=== PATIENT | female | born 1960 | race Caucasian/White ===

== ENCOUNTER → 2016-08-04 | Day surgery (SDC) | payer BC ==
--- NOTE | 2016-07-16 15:57 | TH ---
cc: TYE WINN M.D. DATE: PROCEDURE TO BE PERFORMED: Debridement of radiated atrophic skin right breast with tissue rearrangement and reconstruction, possible ADN, removal and replacement of implant with an MX 295 Natrelle style 410 with possible Tez flap based on the back. PAST MEDICAL HISTORY: The past medical history is otherwise unremarkable. She does have a history of hypothyroidism for which she takes Synthroid also anastrozole and alendronate. PAST SURGICAL HISTORY: No other surgeries other than the surgical mastectomies starting back in December of 2004 with tissue expanders and those were removed. We have some issue with the right breast that eventually required a latissimus dorsi on 06/20/15 and then a revision on 12/17/15. On 06/03/15, she also had some revision because of the latissimus dorsi but we are finding that the [place] skin of the right radiated breast is becoming very thin and has an intermittent exposure of the implant. PHYSICAL EXAMINATION: GENERAL APPEARANCE: The patient is a well-developed female in no acute distress. Body habitus is within normal limits. There appear to be no deformities. Appears to have attention to grooming. HEAD, EYES, EARS, NOSE AND THROAT: Eyes Conjunctivae and lids are within normal anatomical limits. The pupils are reactive to light and accommodation, size, and symmetry. There is no evidence of exudate, hemorrhage, or vessel change. Ears, mouth, nose, and throat The external inspection of the ears and nose fails to demonstrate any pathology, scars, lesions, or masses. Nasal mucosa, septum, and turbinates appear to be well hydrated as well as the lips and gums. No evidence of masses in the hypopharynx or submental area. RESPIRATORY: The patient shows no evidence of intercostal refractions. Otherwise, lungs are clear to auscultation without any abnormal sounds or rubs. CARDIOVASCULAR: The patient has a normal heart rate and rhythm. There is no evidence of noticed carotid bruits. Femoral pulses and pedal pulses in extremities are also within normal limits. GASTROINTESTINAL/ABDOMEN: Soft with no evidence of masses or tenderness. Unable to palpate the liver or spleen. No evidence of hernia. MUSCULOSKELETAL: Appears to be reasonable range of motion on the head, neck, spine, ribs, pelvis, right upper extremity, left upper extremity, right lower extremity, and left lower extremity. The muscle strength and tone appears to be equal and within accepted limits. SKIN: There is no rashes, lesions, or ulcers on the trunk, back, and extremities. NEUROLOGICAL: Examination is grossly normal. PSYCHIATRIC: The patient appears to have good orientation of time, place, and person. Does not appear to have any mood effects of depression, anxiety, or agitation. BREASTS: Both breasts are well-healed. There is no evidence of oncologic pathology other than very atrophic skin of the right breast with a latissimus dorsi flap. PLAN: The plan is to proceed accordingly as previously described. MD KARIN Raines/NICKI /1:56 PM /3:49 PM
--- NOTE | 2016-07-31 10:50 | TH ---
cc: TYE WINN M.D. DATE 07/31/2016 DATE OF 1960 THE PROCEDURE TO BE PERFORMED Revision reconstruction right breast including removal and replacement of implant for a [id number], possible Tez flap, possible placement of ADM. HISTORY OF PRESENT ILLNESS This is a 53-year female who underwent back in December of 2014 breast reconstruction with breast tissue expanders. Those were removed. 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 Unfortunately, radiation has continued to thin the skin despite the latissimus dorsi the reason for which we are doing this revision. PAST MEDICAL HISTORY Her past medical history is otherwise significant for an overactive thyroid which has been apparently under control. MEDICATIONS Medications include: 1. Anastrozole 2. Synthroid 3. Alendronate HABITS Benign REVIEW OF SYSTEMS Otherwise unremarkable. ALLERGIES None PHYSICAL EXAM CONSTITUTIONAL: General appearance. The patient is a well-developed female in no acute distress. Body habitus is within normal limits. There appear to be no deformities. Appears to have attention to grooming. HEENT: Eyes Conjunctivae and lids are within normal anatomical limits. The pupils are reactive to light and accommodation, size, and symmetry. There is no evidence of exudate, hemorrhage, or vessel change. Ears, mouth, nose, and throat The external inspection of the ears and nose fails to demonstrate any pathology, scars, lesions, or masses. Nasal mucosa, septum, and turbinates appear to be well hydrated as well as the lips and gums. No evidence of masses in the hypopharynx or submental area. RESPIRATORY: The patient shows no evidence of intercostal refractions. Otherwise, lungs are clear to auscultation without any abnormal sounds or rubs. CARDIOVASCULAR: The patient has a normal heart rate and rhythm. There is no evidence of noticed carotid bruits. Femoral pulses and pedal pulses in extremities are also within normal limits. GASTROINTESTINAL/ABDOMEN: Soft with no evidence of masses or tenderness. Unable to palpate the liver or spleen. No evidence of hernia. MUSCULOSKELETAL: Appears to be reasonable range of motion on the head, neck, spine, ribs, pelvis, right upper extremity, left upper extremity, right lower extremity, and left lower extremity. The muscle strength and tone appears to be equal and within accepted limits. SKIN: There is no rashes, lesions, or ulcers on the trunk, back, and extremities. NEUROLOGICAL: Examination is grossly normal. PSYCHIATRIC: The patient appears to have good orientation of time, place, and person. Does not appear to have any mood effects of depression, anxiety, or agitation. PLAN As above. MD KARIN Raines/JIMMIE /10:27 AM /10:40 AM
[~2016-08-04] MED LIST: ACETAMINOPHEN 1000 MG/100 ML VIAL IV ONE; ACETAMINOPHEN/HYDROcodone 325 MG/5 MG TAB ONE; BACITRACIN IM FOR SOLN 50,000 UNIT VIAL ONE; BUPIVACAINE/EPINEPHRINE 0.5% PF 30 ML VIAL ONE; FLUMAZENIL 1 MG/10 ML VIAL IV ONE; GENTAMICIN SULFATE 80 MG/2 ML VIAL ONE; KETOROLAC TROMETHAMINE 30 MG/ML (IVP) VIAL IV PUSH ONE; LACTATED RINGER'S 1,000 ML BAG IV ONE; LACTATED RINGER'S 1000 ML INJ 1,000 ML ONE; LIDOCAINE 2%/EPINEPHrine PF 1:200,000 20ML SDV ONE; MIDAZOLAM HCL 2 MG/2 ML VIAL ONE; ONDANSETRON HCL 4 MG/2 ML VIAL IV PUSH ONE; PROPOFOL 100 MG/10 ML INJ IV ONE; SODIUM CHLORIDE 0.9% 20 ML VIAL ONE; SODIUM CHLORIDE 0.9% INJ 10 ML ONE; ceFAZolin INJ 1,000 MG VIAL ONE
--- NOTE | 2016-08-04 10:24 | TN ---
cc: FABRICIO CABALLERO M.D. DATE OF SURGERY 08/04/2016 PREOPERATIVE DIAGNOSIS 1. 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 PROCEDURE TODAY 1. Revision reconstruction of the right breast implant including removal/replace of implant for a [id number] 290 cc, serial number [id number]. 2. Interposition latissimus dorsi flap to the thin tissue and reinforcement of the mid inferomedial and lateral poles reinforcement with 6 x 16 AlloDerm. SURGEON Fabricio Caballero MD ANESTHESIA General and LMA plus a total of 30 cc of 1% lidocaine with epinephrine. ESTIMATED BLOOD LOSS Minimal COMPLICATIONS None DRAINS None PROCEDURE She was properly consented, marked and anesthetized. The skin was sterilized with Betadine solution and sterile draping applied. Local anesthetic was infiltrated. I proceeded and utilized an incision of the latissimus dorsi myocutaneous flap on the inferomedial borders of it and dissected to the attachments to the [place] skin. I encountered the capsule, the implant was removed. A thorough irrigation was carried out with antibiotic solution. Before that, cultures were obtained. I proceeded and perform superomedial capsulotomies not only radial, but also tangential. With this, I proceeded and released the latissimus dorsi myocutaneous flap in order to advance this inferiorly, medially and laterally. Nonetheless, the area of thin skin was reinforced with a 6 x 16 AlloDerm which tended to cover the mid inferior medial and lateral poles. A 6 x 16 was utilized thick. I proceeded to perform the anchoring. We utilized pledgets with one of nylon suture and Xeroform pledgets. Isolation of the skin carried out and I proceeded to perform the introduction of the new implant. The wounds were properly closed finding an excellent protection of the thin skin. Due to the fact that we have a slight smaller implant, we were able to removed a little bit of the radiated [place] breast skin and advance the latissimus dorsi further down. Closure was done utilizing multiple layers of 2-0 Monocryl suture in the dermis and subcu, as well as the plication of latissimus dorsi down into the [place] radiated skin. Great protection was achieved. Xeroform gauze was utilized to protect the whole area, fluffs and drape tape was applied. Overall, the patient tolerated the procedure well. She was awakened and extubated in the operating room, transferred back to the postanesthesia care unit in stable condition. There were no complications appreciated. The patient tolerated the procedure fairly well. MD KARIN Raines/JIMMIE /10:09 AM /10:21 AM MTDGrant
== END | disposition home or self-care (01) ==
LOC: ESDC 07:09
PROVIDERS: ATTEND Plastic Surgery
DX: Z85.3 Personal history of malignant neoplasm of breast (principal); Y84.2 Radiological procedure and radiotherapy as the cause of abnormal reaction of the patient, or of later complication, without mention of misadventure at the time of the procedure
CPT/HCPCS: 00402; 15777; 19380; 87070; 87205; C1789; J0131; J0690; J1580; J1885; J2250; J2405; J3010; J7120; Q4116